=== PATIENT | female | born 1955 | race Caucasian/White ===

== ENCOUNTER 2017-11-21 07:37 | Outpatient (CLI) | payer BC | END 2017-11-21 07:38 | disposition home or self-care (01) | LOC: BICULT 07:37 | PROVIDERS: ATTEND Internal Medicine Gastroenterology | DX: K74.60 Unspecified cirrhosis of liver (principal); K76.0 Fatty (change of) liver, not elsewhere classified; Z85.038 Personal history of other malignant neoplasm of large intestine | CPT/HCPCS: 76705 ==

== ENCOUNTER 2018-01-02 08:23 | Outpatient (CLI) | payer BC | END 2018-01-02 08:24 | disposition home or self-care (01) | LOC: BICMAMMO 08:23 | PROVIDERS: ATTEND Nurse Practitioner Family | DX: Z12.31 Encounter for screening mammogram for malignant neoplasm of breast (principal); R92.1 Mammographic calcification found on diagnostic imaging of breast; Z80.3 Family history of malignant neoplasm of breast | CPT/HCPCS: 77063; 77067 ==

== ENCOUNTER 2018-03-17 14:58 | Outpatient (CLI) | payer BC | END 2018-03-17 14:59 | disposition home or self-care (01) | LOC: DTY/OP 14:58 | PROVIDERS: ATTEND Surgery | DX: E78.5 Hyperlipidemia, unspecified (principal); E11.9 Type 2 diabetes mellitus without complications; I10 Essential (primary) hypertension | CPT/HCPCS: 97802 ==

== ENCOUNTER 2018-07-13 08:13 | Outpatient (CLI) | payer BC ==
--- NOTE | 2018-07-13 10:19 | RAD ---
TWO VIEWS CHEST: Date: 07-13-18 Comparison: None. History: Pre-operative patient. FINDINGS: No pneumothorax, pleural fluid, focal consolidation or alveolar edema. Heart and mediastinal contours grossly unremarkable. IMPRESSION: No acute findings. POS: [facility]
== END 2018-07-13 08:14 | disposition home or self-care (01) ==
LOC: LABBT 08:13
PROVIDERS: ATTEND Surgery
DX: Z01.812 Encounter for preprocedural laboratory examination (principal); E66.01 Morbid (severe) obesity due to excess calories
CPT/HCPCS: 71046

== ENCOUNTER 2018-07-13 08:30 | Inpatient (IN) | payer BC ==
[2018-07-20] MEDS ORDERED: CEFAZOLIN 2 GM/50 ML BAG ONE (06:32)
[2018-07-20] MEDS ORDERED: Heparin 5,000 UNITS/ML VIAL ONE (06:32)
[2018-07-20] MEDS ORDERED: Midazolam HCl 2 mg/2 ml Vial ONE (06:45)
[2018-07-20] MEDS ORDERED: Fentanyl 100 MCG/2 ML VIAL ONE ×2 (06:45→09:13)
[2018-07-20] MEDS ORDERED: Bupivacaine/Epinephrine 0.25% 30 ML VIAL ONE (07:01)
[2018-07-20] MEDS ORDERED: hydrALAZINE 20 MG/ML VIAL SLOW IVP PRN (08:58)
[2018-07-20] MEDS ORDERED: Ondansetron PF 4 MG/2 ML Vial IVP PRN ×2 (08:58→09:28)
[2018-07-20] MEDS ORDERED: Promethazine HCl 25 MG/ML VIAL IM PRN ×3 (08:58→09:28)
[2018-07-20] MEDS ORDERED: Dextrose 5% in Water 1,000 ML IV PRN (08:58)
[2018-07-20] MEDS ORDERED: Hydrocodone-Acetamin 15 ML UDCUP PO PRN (08:58)
[2018-07-20] MEDS ORDERED: Dextrose 50% Abboject 50 ML SYRINGE SLOW IVP PRN (08:58)
[2018-07-20] MEDS ORDERED: Insulin Regular 300 UNITS/3 ML VIAL SC PRN (08:58)
[2018-07-20] MEDS ORDERED: diphenhydrAMINE 50 MG/ML VIAL IVP PRN ×2 (08:58→09:28)
[2018-07-20] MEDS ORDERED: CEFAZOLIN/Water 2 GM/20 ML SYRINGE SLOW IVP SCH (09:00)
[2018-07-20] MEDS ORDERED: Promethazine HCl 25 MG/ML VIAL SLOW IVP PRN (09:06)
[2018-07-20] MEDS ORDERED: Ondansetron HCl/PF 4 MG/2 ML Vial IVP PRN (09:06)
[2018-07-20] MEDS ORDERED: diphenhydrAMINE 50 MG/ML VIAL IM PRN (09:28)
[2018-07-20] MEDS ORDERED: diphenhydrAMINE 25 MG CAP PO PRN (09:28)
[2018-07-20] MEDS ORDERED: fentaNYL Citrate/PF 2,000 MCG in Sodium Chloride 0.9% 60 ML IV PRN (09:28)
[2018-07-20] MEDS ORDERED: Zolpidem Tartrate 5 MG TAB PO PRN (09:28)
[2018-07-20] MEDS ORDERED: Naloxone HCl 0.4 mg/ml Vial IV PRN (09:28)
[2018-07-20] MEDS ORDERED: Communication Order-Pharmacy FS SCH (09:30)
[2018-07-20 10:47] VITALS: BMI 44.2
[2018-07-20] MEDS: 1/2 NS w/KCL 20 mEq 1,000 ML IV SCH ×3 (12:02→20:25)
[2018-07-20] MEDS: Ketorolac Tromethamine 30 MG/ML VIAL IVP SCH ×2 (12:03→18:16)
[2018-07-20] MEDS: Enoxaparin Sodium 40 MG/0.4 ML SYRINGE SC SCH (12:03)
[2018-07-20] MEDS: Pantoprazole 40 MG VIAL IVP SCH (12:03)
--- NOTE | 2018-07-20 12:54 | HP ---
PREOPERATIVE HISTORY AND PHYSICAL CHIEF COMPLAINT: Morbid obesity. HISTORY OF PRESENT ILLNESS: The patient is a 63-year-old female, who has been overweight for many years. Attempted multiple weight loss programs without success. She is here for sleeve gastrectomy. PAST MEDICAL HISTORY: Significant for 1. Hypothyroidism. 2. Hypertension. 3. Hyperlipidemia. 4. Diabetes. PAST SURGICAL HISTORY: She has had a hysterectomy and a colon resection. MEDICATIONS: Include, 1. Lisinopril. 2. Synthroid. 3. Metformin. 4. Meloxicam. 5. Crestor. FAMILY HISTORY: Both parents are . SOCIAL HISTORY: She is . Former smoker. No tobacco or alcohol. ALLERGIES: NO KNOWN DRUG ALLERGIES. PHYSICAL EXAMINATION: VITAL SIGNS: Height 64, weight 278, body mass index 47.7, blood pressure 155/89, and pulse 86. GENERAL: Well-developed and well-nourished female, in no apparent distress. HEENT: Good hair growth. No alopecia. Pupils are equal, round, and reactive. Extraocular motor intact. Pharynx is clear. Good intake. NECK: Supple. No thyroid masses. No carotid bruits. LUNGS: Clear. HEART: Regular rate and rhythm. BREASTS: No palpable breast masses. No lymphadenopathy. ABDOMEN: Soft, nondistended, and nontender. EXTREMITIES: Good pulses. No pedal edema. Extremities are unremarkable. BACK: Nontender. ASSESSMENT: Morbid obesity with comorbidities. PLAN: Laparoscopic sleeve gastrectomy. CONSENT: I have discussed the planned procedure as well as risk of bleeding, infection, injury to bowel, bladder, need to open, leakage from staple line, injury to the spleen, injury to the esophagus. She understands and gives informed consent. Job ID: [id number]
[2018-07-20] MEDS: CEFAZOLIN 2 GM/50 ML-DEXTROSE 2 GM in Premix Bag 1 BAG IVPB SCH ×2 (12:57→20:25)
--- NOTE | 2018-07-20 13:10 | OP ---
DATE OF PROCEDURE: 07/20/2018 PREOPERATIVE DIAGNOSIS: Morbid obesity. PROCEDURES PERFORMED: Laparoscopic lysis of adhesions, laparoscopic sleeve gastrectomy, and esophagogastroscopy. INDICATIONS FOR PROCEDURE: A 63-year-old female, morbidly obese, who has attempted multiple weight loss programs without success. FINDINGS: She had a previous colon resection and she had extensive intraabdominal adhesions, which had to be taken down to do the procedure. A 38-Yi bougie was used to create the sleeve. DESCRIPTION OF PROCEDURE: After informed consent was obtained, the patient was taken to the operating room and given general endotracheal anesthesia. Her abdomen was prepped and draped in the usual fashion. Local anesthesia was infiltrated subcutaneously and deep, and a 12 mm incision was performed far left upper quadrant. A Veress needle was inserted, drop test performed, pneumoperitoneum was created to a volume of 2 L of carbon dioxide. Utilizing a bladeless 12 mm trocar and zero-degree laparoscope, direct visual entry into the abdominal cavity was performed. Pneumoperitoneum was then created to a pressure of 15 mmHg. A second 12 mm port was placed subcostal and a laparoscopic lysis of adhesions was performed sharply utilizing the LigaSure. Then, a third 12 mm incision was performed just above and lateral to the umbilicus. Finally, a fourth 12 mm port was placed on the right side. The patient then placed in steep reverse Trendelenburg position. Preston liver retractor inserted. The omentum was taken off the greater curvature 5 cm from the pylorus utilizing the LigaSure. Short gastrics divided with LigaSure with a LigaSure. A 38-Yi bougie inserted, directed into the antrum. The linear 60 mm green load stapler used to divide the antrum to the bougie, gold load along the bougie, and a series of blues through the angle of His. Intraoperative endoscopy was performed. The video endoscope inserted under direct vision and advanced into the sleeve. The staple line inspected. There was no bleeding. Staple line then tested by inflating the new stomach with pressurized air and water. There was no air leak. Stomach was decompressed. Scope was removed. The remnants of the stomach were removed from the abdomen through the left lateral port site. The fascia was closed with 0 Vicryl suture and the GraNee needle. The trocars and retractors were removed. The skin was closed with interrupted 4-0 Rapide. Dermabond was applied. The patient tolerated the procedure well and transferred to recovery in good condition. Sponge and needle count verified correct x2. Job ID: [id number]
[2018-07-21] MEDS: Ketorolac Tromethamine 30 MG/ML VIAL IVP SCH ×3 (00:11→11:19)
[2018-07-21 06:06] LABS: Anion Gap 11 mmol/L (10-20); BUN (Urea Nitrogen) 21 mg/dL (9.8-20.1); Calc. Creatinine Clearance 114 mL/min (70-130); Calcium 8.7 mg/dL (7.8-10.44); Carbon Dioxide 27 mmol/L (23-31); Chloride 105 mmol/L (98-107); Estimated GFR-MDRD 59; Glucose 82 mg/dL (80-115); Potassium 4.5 mmol/L (3.5-5.1); Sodium 138 mmol/L (136-145)
[2018-07-21 06:33] LABS: #Eosinphils 0.1 thou/uL (0.0-0.7); #Lymphocytes 1.5 thou/uL (1.20-3.40); #Monocytes 0.7 thou/uL (0.11-0.59); #Neutrophils 5.9 thou/uL (1.40-6.50); %Basophils 0.4 % (0.0-1.0); %Eosinophils 0.9 % (0.0-10.0); %Lymphocytes 17.9 % (21.0-51.0); %Monocytes 8.6 % (0.0-10.0); %Neutrophils 72.2 % (42.0-75.0); Hemoglobin 13.9 g/dL (12.0-16.0); Mean Corpuscular HGB CONC 34.1 g/dL (32.0-36.0); Mean Corpuscular Hemoglobin 32.2 pg (27.0-31.0); Mean Corpuscular Volume 94.5 fL (78.0-98.0); Mean Platelet Volume 10.4 fL (7.4-10.4); PLT Morphology Comment Appears Decreased; Platelet Count 87 thou/uL (130-400); RBC Distribution Width 11.8 % (11.5-14.5); Red Blood Cell (RBC) Count 4.32 mill/uL (4.20-5.40); White Blood Cell (WBC) Count 8.1 thou/uL (4.8-10.8)
[2018-07-21] MEDS: Pantoprazole 40 MG VIAL IVP SCH (08:53)
[2018-07-21] MEDS: Enoxaparin Sodium 40 MG/0.4 ML SYRINGE SC SCH (09:23)
[2018-07-21] MEDS: 1/2 NS w/KCL 20 mEq 1,000 ML IV SCH (09:23)
--- NOTE | 2018-07-21 10:25 | RAD ---
UPPER GI SERIES CONTRAST SWALLOW SINGLE COLUMN: 07/21/2018 HISTORY: A 63-year-old female, very recently status post bariatric surgery. TECHNIQUE: The patient swallowed 15 mL of Gastrografin, while upright, under brief, intermittent fluoroscopy. FINDINGS: The contrast material passes through the narrowed gastric channel and drains into the duodenum at an appropriate rate. No obstruction or leakage. Multiple surgical clips paralleling the gastric channe l. IMPRESSION: 1. Status post vertical sleeve gastrectomy. 2. No evidence of complications. POS: [facility]
[2018-07-21] MEDS ORDERED: Hydrocodone-Acetamin 15 ML UDCUP PO PRN ×2 (11:08)
[2018-07-21 11:40] VITALS: BP 115/74; TEMP 98
--- NOTE | 2018-07-22 05:39 | DIS ---
DATE OF ADMISSION: 07/20/2018 DATE OF DISCHARGE: 07/21/2018 DISCHARGE DIAGNOSIS: Morbid obesity. PROCEDURES DURING ADMISSION: Laparoscopic sleeve gastrectomy, intraoperative esophagogastroscopy, and postoperative Gastrografin swallow. HOSPITAL COURSE: The patient was admitted and taken to the operating room where she underwent sleeve gastrectomy. Postoperatively, she is doing well. She is tolerating liquids well. Her pain is controlled. Her x-ray is fine. She is discharged home on hydrocodone and Zofran. She will follow up with me in 2 weeks. Job ID: [id number]
== END 2018-07-21 15:59 | disposition home or self-care (01) | DRG 621 ==
LOC: SURG A 07-20 06:09 → SURG B 07-20 10:23
PROVIDERS: ADMIT Surgery; ATTEND Surgery
PROC: 0DB64Z3 Excision of Stomach, Percutaneous Endoscopic Approach, Vertical (ICD-10-PCS; principal; 2018-07-20)
PROC: 0DNW4ZZ Release Peritoneum, Percutaneous Endoscopic Approach (ICD-10-PCS; 2018-07-20)
PROC: 0DJ68ZZ Inspection of Stomach, Via Natural or Artificial Opening Endoscopic (ICD-10-PCS; 2018-07-20)
DX: E66.01 Morbid (severe) obesity due to excess calories (principal); Z68.41 Body mass index [BMI] 40.0-44.9, adult; K66.0 Peritoneal adhesions (postprocedural) (postinfection); E03.9 Hypothyroidism, unspecified; I10 Essential (primary) hypertension; E11.9 Type 2 diabetes mellitus without complications; Z79.84 Long term (current) use of oral hypoglycemic drugs
CPT/HCPCS: 36415; 36416; 74241; 80048; 85025; 88307; 88312; 96374; C9113; J1644; J1650; J1885; J2250; J3010; J7050

== ENCOUNTER 2019-04-20 08:46 | Outpatient (CLI) | payer BC ==
--- NOTE | 2019-04-20 09:21 | RAD ---
EXAM: Two views chest PROVIDED CLINICAL HISTORY: Lymphadenopathy. COMPARISON: 07/13/2018 FINDINGS: Cardiac silhouette is at the upper limits of normal to borderline enlarged. Pulmonary vasculature is within normal limits. The lungs are clear. There is calcification of the anterior longitudinal ligament. Surgical clips overlie the right upper quadrant. Chest is overall stable when compared to t he prior exam. IMPRESSION: No acute cardiopulmonary process.
--- NOTE | 2019-04-20 09:50 | RAD ---
RIGHT FOOT 3 VIEWS: Date: 04/20/19 INDICATION: Knot felt in region of first metatarsal had. COMPARISON: None. FINDINGS: There is moderate osteoarthrosis of the right great toe MTP joint. No acute fracture is evident. Ther e is mild to moderate scattered IP osteoarthrosis. Lisfranc alignment is preserved. There is heteroto pic ossification seen within the region of the plantar fascia. Enthesopathic change seen off the calc aneus and base of fifth metatarsal. Accessory ossicle seen adjacent to the cuboid. IMPRESSION: 1. Scattered osteoarthrosis of the right foot. 2. Focus of heterotopic ossification seen within the region of the plantar fascia may reflect sequel ae of prior injury in this region. POS: [facility]
== END 2019-04-20 08:47 | disposition home or self-care (01) ==
LOC: RAD-FRANK 08:46
PROVIDERS: ATTEND Nurse Practitioner Family
DX: M79.671 Pain in right foot (principal); R59.1 Generalized enlarged lymph nodes; M19.071 Primary osteoarthritis, right ankle and foot; M67.873 Other specified disorders of tendon, right ankle and foot
CPT/HCPCS: 71046

== ENCOUNTER 2019-04-22 08:12 | Outpatient (CLI) | payer BC ==
--- NOTE | 2019-04-22 08:49 | MMO ---
Bilateral MAMMO Bilat Screen [facility]. CLINICAL HISTORY: Patient is 64 years old and is seen for screening. The patient has the following family history of breast cancer: sister. The patient has no personal history of cancer. VIEWS: The views performed were: bilateral craniocaudal with tomosynthesis and bilateral mediolateral oblique with tomosynthesis. FILMS COMPARED: The present examination has been compared to prior imaging studies performed at [facility] on 12/04/2015, 01/01/2017 and 01/02/2018, and at [facility] on 12/17/2012. MAMMOGRAM FINDINGS: There are scattered fibroglandular densities. There are stable benign appearing calcifications seen in both breasts. There are no suspicious masses, suspicious calcifications, or new areas of architectural distortion. IMPRESSION: THERE IS NO MAMMOGRAPHIC EVIDENCE OF MALIGNANCY. A ROUTINE FOLLOW-UP MAMMOGRAM IN 1 YEAR IS RECOMMENDED. THE RESULTS OF THIS EXAM WERE SENT TO THE PATIENT. ACR BI-RADS Category 2 - Benign finding MAMMOGRAPHY NOTE: 1. A negative mammogram report should not delay a biopsy if a dominant of clinically suspicious mass is present. 2. Approximately 10% to 15% of breast cancers are not detected by mammography. 3. Adenosis and dense breasts may obscure an underlying neoplasm. Reported by: BALJINDER THOMPSON MD Electonically Signed: [id number]
== END 2019-04-22 08:13 | disposition home or self-care (01) ==
LOC: BICMAMMO 08:12
PROVIDERS: ATTEND Nurse Practitioner Family
DX: Z12.31 Encounter for screening mammogram for malignant neoplasm of breast (principal); Z80.3 Family history of malignant neoplasm of breast
CPT/HCPCS: 77063; 77067

== ENCOUNTER 2019-05-17 08:25 | Outpatient (CLI) | payer BC ==
--- NOTE | 2019-05-17 09:48 | ULT ---
Hepatic sonogram with duplex evaluation HISTORY: Cirrhosis. FINDINGS: Small echogenic stone within the gallbladder lumen. No gallbladder wall thickening or peric holecystic fluid. Common duct is 0.3 cm. Liver unremarkable without focal mass or intrahepatic biliary dilatation. No free fluid. Spleen measures up to 11.7 cm. Good color and spectral Doppler flow within the hepatic and splenic arteries. Portal venous flow is t owards the liver. Hepatic venous flow is towards the IVC. IMPRESSION: Cholelithiasis. No evidence of acute biliary obstruction. No sonographic findings of portal venous hypertension.
== END 2019-05-17 08:26 | disposition home or self-care (01) ==
LOC: SCSULT 08:25 → ULT 08:26
PROVIDERS: ATTEND Physician Assistant Medical
DX: K74.60 Unspecified cirrhosis of liver (principal); K76.0 Fatty (change of) liver, not elsewhere classified; K80.20 Calculus of gallbladder without cholecystitis without obstruction; Z85.038 Personal history of other malignant neoplasm of large intestine; Z98.84 Bariatric surgery status
CPT/HCPCS: 76705

== ENCOUNTER 2020-09-13 12:52 | Outpatient (CLI) | payer BC, MEDICARE ==
[~2020-09-13 12:52] MED LIST: Magnevist 469MG/ML 20 ML VIAL ONE
--- NOTE | 2020-09-13 14:13 | MRI ---
MRI OF THE CONTRAST WITH AND WITHOUT CONTRAST: INDICATION: A 65-year-old female with history of cirrhosis of the liver. COMPARISON: Prior CT abdomen pelvis dated 05/29/2015 and hepatic duplex evaluation dated 05/17/2019. TECHNIQUE: Multiplanar multisequence MR images were obtained of the abdomen utilizing liver mass protocol. 20 cc of MultiHance was administered for the examination. FINDINGS: There is a cirrhotic morphology of the liver. The spleen is enlarged measuring 15.1 cm. There are mul tiple small gallstones within the gallbladder. No biliary ductal dilatation is evident. Pancreas appears within normal limits. There are small calcifications within the right adrenal gland which are stable. Left adrenal gland is normal-appearing. The kidneys are normal appearing. No suspicious arterially enhancing lesion is evident within the liver. The portal vein is patent. No lymphadenopathy or free fluid is identified. No marrow signal abnormality is evident. IMPRESSION: 1. Findings of cirrhosis and portal hypertension. No suspicious signal abnormality or region of abnor mal enhancement is evident within the liver. 2. Cholelithiasis. Transcribed Date/Time: 09/13/2020 2:18 PM
== END 2020-09-13 12:53 | disposition home or self-care (01) ==
LOC: BICMRI 12:52
PROVIDERS: ATTEND Internal Medicine Gastroenterology
DX: K74.60 Unspecified cirrhosis of liver (principal); K76.6 Portal hypertension; K80.20 Calculus of gallbladder without cholecystitis without obstruction
CPT/HCPCS: 74183; 82565; A9579

== ENCOUNTER 2020-10-17 11:18 | Outpatient (CLI) | payer BC ==
[2020-10-17 12:33] LABS: #Eosinphils 0.2 10x3/uL (0.0-0.5); #Monocytes 0.5 10x3/uL (0.0-1.1); #Neutrophils 2.4 10x3/uL (1.5-8.4); %Basophils 0.5 % (0.0-2.0); %Eosinophils 3.7 % (0.0-6.0); %Neutrophils 55.6 % (40.0-75.0); Hemoglobin 14.1 g/dL (12.0-15.5); Mean Corpuscular HGB CONC 32.9 g/dL (32.0-36.0); Mean Corpuscular Hemoglobin 31.1 pg (27.0-33.0); Mean Corpuscular Volume 94.5 fl (81.6-98.3); Mean Platelet Volume 12.1 fl (7.4-10.4); Platelet Count 116 10x3/uL (150-450); RBC Distribution Width 12.8 % (11.5-14.5); Red Blood Cell (RBC) Count 4.54 10x6/uL (3.90-5.03); White Blood Cell (WBC) Count 4.3 10x3/uL (3.5-10.5)
[2020-10-17 12:40] LABS: ALT (SGPT) 25 U/L (8-55); AST (SGOT) 33 U/L (5-34); Albumin 4.2 g/dL (3.4-4.8); Alkaline Phosphatase 95 U/L (40-110); Anion Gap 12 mmol/L (10-20); BUN (Urea Nitrogen) 13 mg/dL (9.8-20.1); Bilirubin, Direct 0.4 mg/dL (0.1-0.3); Bilirubin, Total 1.1 mg/dL (0.2-1.2); Calc. Creatinine Clearance 0 mL/min (70-130); Calcium 9.1 mg/dL (7.8-10.44); Carbon Dioxide 29 mmol/L (23-31); Chloride 107 mmol/L (98-107); Globulin 2.7 g/dL (2.4-3.5); Glucose 74 mg/dL (80-115); Potassium 4.1 mmol/L (3.5-5.1); Protein, Total 6.9 g/dL (5.8-8.1); Sodium 144 mmol/L (136-145)
[2020-10-17 12:56] LABS: INR-International Normal Ratio 1.1; PTT 29.1 sec (22.0-33.0); Prothrombin Time 11.1 sec (9.5-12.1)
[2020-10-17 20:04] LABS: SARS-CoV-2 PCR by NAA Not Detected (NotDetected)
== END 2020-10-17 11:19 | disposition home or self-care (01) ==
LOC: LABBT 11:18
PROVIDERS: ATTEND Surgery
DX: Z01.818 Encounter for other preprocedural examination (principal); Z20.822 Contact with and (suspected) exposure to COVID-19; K80.20 Calculus of gallbladder without cholecystitis without obstruction; K74.60 Unspecified cirrhosis of liver
CPT/HCPCS: 80053; 80076; 85025; 85610; 85730; 87635; 93005; 93010; U0003; U0005

== ENCOUNTER 2020-10-20 07:22 | Day surgery (SDC) | payer BC ==
[2020-10-19 09:06] VITALS: BMI 41.1
[2020-10-20] MEDS ORDERED: cefOXitin Sodium/Dextrose 2 GM/50 ML BAG ONE (07:43)
[2020-10-20] MEDS ORDERED: Sodium Chloride 0.9% 0 ML ONE (07:44)
[2020-10-20] MEDS ORDERED: Bupivacaine 0.25% HCL 30 ML VIAL ONE (08:26)
[2020-10-20] MEDS ORDERED: XYLOCAINE 2%-EPI 1:100,000 20 ML VIAL ONE (08:26)
[2020-10-20] MEDS ORDERED: Fentanyl 100 MCG/2 ML VIAL ONE ×2 (08:57→10:39)
[2020-10-20] MEDS ORDERED: PROPOFOL 200 MG/20 ML VIAL ONE (09:09)
[2020-10-20] MEDS ORDERED: PHENYLEPHRINE-NS 100 MCG/ML 10 ML SYRINGE ONE (09:09)
[2020-10-20] MEDS ORDERED: Rocuronium Bromide 10 MG/ML (10ML VIAL) ONE (09:09)
[2020-10-20] MEDS ORDERED: ePHEDrine 50 MG/ML VIAL ONE ×2 (09:09→10:56)
[2020-10-20] MEDS ORDERED: Glycopyrrolate 0.2 MG/ML 5 ML SYRINGE ONE (09:09)
[2020-10-20] MEDS ORDERED: Lidocaine 1% PF 5 ML VIAL ONE (09:09)
[2020-10-20] MEDS ORDERED: Dexamethasone 20 MG/5 ML VIAL ONE (09:09)
[2020-10-20] MEDS ORDERED: Ondansetron PF 4 MG/2 ML Vial ONE (09:09)
[2020-10-20] MEDS ORDERED: Promethazine HCl 25 MG/ML VIAL ONE (10:51)
[2020-10-20] MEDS ORDERED: HYDROcodone/Acetaminophen 5/325 mg Tablet ONE (12:00)
== END 2020-10-20 13:40 | disposition home or self-care (01) ==
LOC: SDC 07:22
PROVIDERS: ATTEND Surgery
PROC: 0FB00ZX Excision of Liver, Open Approach, Diagnostic (ICD-10-PCS; principal; 2020-10-20)
PROC: 0FT44ZZ Resection of Gallbladder, Percutaneous Endoscopic Approach (ICD-10-PCS; principal; 2020-10-20)
DX: K80.10 Calculus of gallbladder with chronic cholecystitis without obstruction (principal); K74.60 Unspecified cirrhosis of liver; E03.9 Hypothyroidism, unspecified; I10 Essential (primary) hypertension; E11.9 Type 2 diabetes mellitus without complications; E78.5 Hyperlipidemia, unspecified; Z79.899 Other long term (current) drug therapy; Z87.891 Personal history of nicotine dependence
CPT/HCPCS: 88304; 88307; 88313; J0694; J1100; J2405; J2550; J2704; J3010; J3490; S0020

== ENCOUNTER 2021-08-05 14:14 | Emergency (ER) | payer BC, MEDICARE ==
[2021-08-05] MEDS ORDERED: Dexamethasone 10 MG/ML VIAL ONE (14:33)
[2021-08-05 15:21] LABS: #Lymphocytes 0.6 thou/uL (1.20-3.40); #Monocytes 0.5 thou/uL (0.11-0.59); #Neutrophils 2.9 thou/uL (1.40-6.50); %Basophils 0.6 % (0.0-1.0); %Eosinophils 0.2 % (0.0-10.0); %Lymphocytes 15.7 % (21.0-51.0); %Neutrophils 70.6 % (42.0-75.0); Hemoglobin 16.6 g/dL (12.0-16.0); Mean Corpuscular HGB CONC 34.6 g/dL (32.0-36.0); Mean Corpuscular Volume 95.4 fL (78.0-98.0); Mean Platelet Volume 9.5 fL (7.4-10.4); Platelet Count 81 thou/uL (130-400); RBC Distribution Width 11.9 % (11.5-14.5); Red Blood Cell (RBC) Count 5.02 mill/uL (4.20-5.40); White Blood Cell (WBC) Count 4.1 thou/uL (4.8-10.8)
[2021-08-05 15:41] LABS: ALT (SGPT) 31 U/L (8-55); AST (SGOT) 49 U/L (5-34); Albumin 4.2 g/dL (3.4-4.8); Alkaline Phosphatase 88 U/L (40-110); Anion Gap 13 mmol/L (10-20); BUN (Urea Nitrogen) 18 mg/dL (9.8-20.1); Bilirubin, Total 1.1 mg/dL (0.2-1.2); CK (CPK) 52 U/L (29-168); Calc. Creatinine Clearance 0 mL/min (70-130); Calcium 9.1 mg/dL (7.8-10.44); Carbon Dioxide 29 mmol/L (23-31); Chloride 100 mmol/L (98-107); Globulin 3.1 g/dL (2.4-3.5); Glucose 94 mg/dL (80-115); Lipase 34 U/L (8-78); Potassium 3.6 mmol/L (3.5-5.1); Protein, Total 7.3 g/dL (5.8-8.1); Sodium 138 mmol/L (136-145)
== END 2021-08-05 17:07 | disposition home or self-care (01) ==
LOC: ERS 14:14
DX: U07.1 COVID-19 (principal); I10 Essential (primary) hypertension; E78.00 Pure hypercholesterolemia, unspecified; E11.9 Type 2 diabetes mellitus without complications; E03.9 Hypothyroidism, unspecified; Z87.891 Personal history of nicotine dependence
CPT/HCPCS: 36415; 71045; 71275; 80053; 82550; 83690; 83880; 84484; 85025; 85379; 93005; 96374; J1100

== ENCOUNTER 2023-08-14 09:18 | Outpatient (CLI) | payer BC ==
[2023-08-14] MEDS ORDERED: Magnevist 469MG/ML 20 ML VIAL ONE (14:42)
== END 2023-08-14 09:19 | disposition home or self-care (01) ==
LOC: MRI 09:18
PROVIDERS: ATTEND Physician Assistant Medical
DX: K74.60 Unspecified cirrhosis of liver (principal); K75.81 Nonalcoholic steatohepatitis (NASH); K76.6 Portal hypertension
CPT/HCPCS: 74183; 82565; A9579

== ENCOUNTER 2023-09-09 08:51 | Outpatient (CLI) | payer BC | END 2023-09-09 08:52 | disposition home or self-care (01) | LOC: BICMAMMO 08:51 | PROVIDERS: ATTEND Nurse Practitioner Family | DX: Z12.31 Encounter for screening mammogram for malignant neoplasm of breast (principal); Z80.3 Family history of malignant neoplasm of breast | CPT/HCPCS: 77063; 77067 ==

== ENCOUNTER 2023-09-18 08:25 | Outpatient (CLI) | payer BC ==
[2023-09-18 10:16] LABS: #Eosinphils 0.1 10x3/uL (0.0-0.5); #Monocytes 0.7 10x3/uL (0.0-1.1); %Basophils 0.6 % (0.0-2.0); %Lymphocytes 27.9 % (18.0-47.0); %Monocytes 13.8 % (0.0-10.0); %Neutrophils 55.5 % (40.0-75.0); Hematocrit 41.8 % (34.9-44.5); Hemoglobin 14.6 g/dL (12.0-15.5); Mean Corpuscular HGB CONC 34.9 g/dL (32.0-36.0); Mean Corpuscular Hemoglobin 32.8 pg (27.0-33.0); Mean Corpuscular Volume 93.9 fl (81.6-98.3); Mean Platelet Volume 12.5 fl (7.4-10.4); Platelet Count 102 10x3/uL (150-450); RBC Distribution Width 12.5 % (11.5-14.5); Red Blood Cell (RBC) Count 4.45 10x6/uL (3.90-5.03); White Blood Cell (WBC) Count 5.4 10x3/uL (3.5-10.5)
[2023-09-18 10:27] LABS: INR-International Normal Ratio 1.1; Prothrombin Time 11.4 sec (9.5-12.1)
[2023-09-18 10:29] LABS: SARS-CoV-2 NAA Rapid Test DETECTED (NotDetected)
[2023-09-18 10:43] LABS: Anion Gap 12 mmol/L (10-20); BUN (Urea Nitrogen) 11 mg/dL (9.8-20.1); Calc. Creatinine Clearance 0 mL/min (70-130); Calcium 8.7 mg/dL (7.8-10.44); Carbon Dioxide 27 mmol/L (23-31); Chloride 102 mmol/L (98-107); Estimated GFR 56; Glucose 104 mg/dL (80-115); Potassium 3.8 mmol/L (3.5-5.1); Sodium 137 mmol/L (136-145)
== END 2023-09-18 08:26 | disposition home or self-care (01) ==
LOC: LABBT 08:25
PROVIDERS: ATTEND Orthopaedic Surgery
DX: U07.1 COVID-19 (principal); Z01.818 Encounter for other preprocedural examination; M17.12 Unilateral primary osteoarthritis, left knee
CPT/HCPCS: 80048; 85025; 85610; 87081; 93005; 93010; U0002

== ENCOUNTER 2023-11-06 05:44 | Observation (INO) | payer BC, MEDICARE ==
[2023-11-06] MEDS ORDERED: Vancomycin (BATCH) 1.5 GM/300 ML BAG ONE (06:01)
[2023-11-06] MEDS ORDERED: Sodium Chloride 0.9% 100 ML ONE ×2 (06:01→06:58)
[2023-11-06] MEDS ORDERED: Tranexamic Acid 1,000 MG/10 ML VIAL ONE (06:01)
[2023-11-06] MEDS ORDERED: PROPOFOL 40 ML ONE (06:10)
[2023-11-06] MEDS ORDERED: Bupivacaine PF 0.5% 30 ML VIAL ONE ×2 (06:22→07:49)
[2023-11-06] MEDS ORDERED: fentaNYL 50 mcg/mL 1 mL Vial ONE (06:42)
[2023-11-06] MEDS ORDERED: HYDROcodone/Acetaminophen 10/325 mg Tablet PO PRN ×2 (06:43)
[2023-11-06] MEDS ORDERED: Midazolam HCl 2 mg/2 ml Vial ONE ×2 (06:43→07:14)
[2023-11-06] MEDS ORDERED: Ondansetron PF 4 MG/2 ML Vial IVP PRN (06:43)
[2023-11-06] MEDS ORDERED: Zolpidem Tartrate 5 MG TAB PO PRN (06:43)
[2023-11-06] MEDS ORDERED: fentaNYL 50 mcg/mL 1 mL Vial SLOW IVP PRN (06:43)
[2023-11-06] MEDS ORDERED: diphenhydrAMINE 25 MG CAP PO PRN (06:43)
[2023-11-06] MEDS ORDERED: Promethazine HCl 25 MG/ML VIAL IM PRN (06:43)
[2023-11-06] MEDS ORDERED: CEFAZOLIN 2 GM VIAL ONE (06:57)
[2023-11-06] MEDS ORDERED: Lidocaine 1% PF 5 ML VIAL ONE (07:37)
[2023-11-06] MEDS ORDERED: Bupivacaine HCl 0.5%/Epinephrine 1:200,000/PF 30 ml Vial ONE (07:37)
[2023-11-06] MEDS ORDERED: Ondansetron PF 4 MG/2 ML Vial ONE (07:37)
[2023-11-06] MEDS ORDERED: diphenhydrAMINE 50 MG/ML VIAL ONE (07:37)
[2023-11-06] MEDS ORDERED: PROPOFOL 20 ML ONE (08:11)
[2023-11-06] MEDS ORDERED: Ropivacaine 0.2% 550 ML 550 ML NERVE BLCK SCH (08:15)
[2023-11-06] MEDS ORDERED: traMADol HCl 50 MG TAB PO PRN (08:15)
[2023-11-06] MEDS ORDERED: Ondansetron HCl/PF 4 MG/2 ML Vial IVP PRN (08:55)
[2023-11-06] MEDS ORDERED: HYDROmorphone 2 MG/ML VIAL SLOW IVP PRN (08:55)
[2023-11-06] MEDS: Aspirin 81 mg Enteric Coated Tablet PO SCH (10:58)
[2023-11-06] MEDS: Losartan 25 MG TAB PO SCH (10:59)
[2023-11-06] MEDS: Ketorolac Tromethamine 30 MG (1 mL) VIAL IVP SCH (13:54)
[2023-11-06] MEDS ORDERED: Ketorolac Tromethamine 30 MG (1 mL) VIAL IVP SCH (14:00)
[2023-11-06] MEDS: Sodium Chloride 0.9% 1,000 ML IV SCH (15:37)
[2023-11-06] MEDS: CEFAZOLIN 2 GM in Sodium Chloride 0.9% 100 ML IVPB SCH (15:44)
[2023-11-06] MEDS: FLU VACC QS2023(65UP)/MF59C/PF 60 MCG/0.5 ML SYRINGE IM ONE (18:16)
[2023-11-06] MEDS: Simvastatin 10 MG TAB PO SCH (20:03)
[2023-11-06] MEDS: Acetaminophen 325 MG TAB PO PRN (20:03)
[2023-11-06] MEDS: traMADol HCl 50 MG TAB PO PRN (20:04)
[2023-11-07] MEDS: Levothyroxine 150 MCG TAB PO SCH (04:45)
[2023-11-07 04:51] LABS: Hematocrit 35.1 % (36.0-47.0); Hemoglobin 11.8 g/dL (12.0-16.0); Mean Corpuscular HGB CONC 33.6 g/dL (32.0-36.0); Mean Corpuscular Hemoglobin 32.7 pg (27.0-31.0); Mean Corpuscular Volume 97.2 fL (78.0-98.0); Mean Platelet Volume 11.7 fL (7.4-10.4); Platelet Count 74 10x3/uL (130-400); RBC Distribution Width 13.1 % (11.5-14.5); Red Blood Cell (RBC) Count 3.61 mill/uL (4.20-5.40)
[2023-11-07 08:17] VITALS: BP 109/65; TEMP 98.2
[2023-11-07] MEDS: Senokot S 8.6-50 MG TAB PO SCH (09:47)
[2023-11-07] MEDS: Ferrous Gluconate 324 MG TAB PO SCH (09:47)
[2023-11-07] MEDS: Multivitamin W/ Minerals 1 TAB PO SCH (09:48)
== END 2023-11-07 10:15 | disposition home or self-care (01) ==
LOC: SDC 05:44 → SJJU 10:33 → SDC 12:22 → SJJU 12:22
PROVIDERS: ADMIT Orthopaedic Surgery; ATTEND Orthopaedic Surgery
PROC: 0SRD0JZ Replacement of Left Knee Joint with Synthetic Substitute, Open Approach (ICD-10-PCS; principal; 2023-11-07)
DX: M17.12 Unilateral primary osteoarthritis, left knee (principal); M16.12 Unilateral primary osteoarthritis, left hip; E03.9 Hypothyroidism, unspecified; I10 Essential (primary) hypertension; E78.5 Hyperlipidemia, unspecified; E11.9 Type 2 diabetes mellitus without complications; Z90.710 Acquired absence of both cervix and uterus; Z98.84 Bariatric surgery status; Z90.49 Acquired absence of other specified parts of digestive tract; Z79.899 Other long term (current) drug therapy; Z87.891 Personal history of nicotine dependence
CPT/HCPCS: 36415; 85027; A4306; C1776; J0665; J1200; J1885; J2250; J2405; J2704; J2795; J3010; J3370; J3490

== ENCOUNTER 2024-04-19 08:49 | Outpatient (CLI) | payer BC, MEDICARE | END 2024-04-19 08:50 | disposition home or self-care (01) | LOC: ULT 08:49 | PROVIDERS: ATTEND Physician Assistant Medical | DX: K74.60 Unspecified cirrhosis of liver (principal); K76.0 Fatty (change of) liver, not elsewhere classified | CPT/HCPCS: 76705 ==

== ENCOUNTER 2025-05-17 09:41 | Outpatient (CLI) | payer BC, MEDICARE ==
[2025-05-18 06:59] LABS: Estimated GFR - POC 61.0
== END 2025-05-17 09:42 | disposition home or self-care (01) ==
LOC: MRI 09:41
PROVIDERS: ATTEND Internal Medicine Gastroenterology
DX: K74.60 Unspecified cirrhosis of liver (principal); I85.10 Secondary esophageal varices without bleeding; J98.9 Respiratory disorder, unspecified; K76.6 Portal hypertension
CPT/HCPCS: 36415; 74183; 82565